=== PATIENT | female | born 1965 | race Caucasian/White ===

== ENCOUNTER 2023-07-08 08:45 | Outpatient (CLI) | payer BC, SELFPAY ==
--- NOTE | 2023-07-08 08:57 | XR_ITS ---
FINAL REPORT CLINICAL HISTORY: FOOT PAIN COMPARISON: None FINDINGS: RIGHT FOOT: Three views of the right foot were obtained. There is no acute fracture or dislocation. The joint spaces are intact with minimal hypertrophic change of the first MTP joint. There is no soft tissue abnormality. IMPRESSION: No acute bony abnormality. Minimal hypertrophic change of the first MTP joint. Reviewed, Interpreted and Dictated by Pérez Rios MD Transcribed by Darya Calvert Authenticated and [facility]
== END 2023-07-08 23:59 ==
LOC: RAD 08:53
PROVIDERS: PCP Family Medicine; Visit Provider Nurse Practitioner
DX: M79.672 Pain in left foot (principal)
CPT/HCPCS: 73630

== ENCOUNTER 2023-07-28 17:48 | Outpatient (CLI) | payer BC, SELFPAY | END 2023-07-28 23:59 | LOC: LAB.DROPOF 17:48 | PROVIDERS: PCP Nurse Practitioner; Visit Provider Nurse Practitioner | DX: M79.671 Pain in right foot (principal); S99.921A Unspecified injury of right foot, initial encounter; R60.0 Localized edema; Z51.89 Encounter for other specified aftercare | CPT/HCPCS: 87070; 87205 ==

== ENCOUNTER 2023-08-11 10:03 | Outpatient (CLI) | payer BC, SELFPAY ==
[2023-08-11 10:45] LABS: Basophils # 0.1 K/mm3 (0-0.2); Basophils % 0.7 % (0.1-2.0); Eosinophils # 0.1 K/mm3 (0.0-0.4); Eosinophils % 0.7 % (0.1-12.0); Hematocrit 42.6 % (37.0-47.0); Hemoglobin 13.8 g/dL (12.2-16.2); Lymphocytes # 2.1 K/mm3 (0.7-4.5); Lymphocytes % 24.1 % (10-50); Mean Corpuscular HGB Conc 32.4 g/dL (31.8-35.4); Mean Corpuscular Hemoglobin 33.5 pg (27.0-31.2); Mean Corpuscular Volume 103.5 fl (81-99); Mean Platelet Volume 7.9 fl (7.4-10.4); Monocytes # 0.4 K/mm3 (0.1-1.0); Monocytes % 4.4 % (1.7-9.3); Platelet Count 278 K/mm3 (142-424); Red Blood Count 4.11 M/mm3 (4.20-5.40); White Blood Count 8.5 K/mm3 (4.8-10.8)
[2023-08-11 11:04] LABS: Chloride 107 mmol/L (98-107); Sodium 139 mmol/L (136-145)
[2023-08-11 11:07] LABS: Alanine Aminotransferase 19 U/L (12-78); Albumin Level 4.6 g/dl (3.5-5.0); Albumin/Globulin Ratio 1.9 (1.1-1.8); Alkaline Phosphatase 91 U/L (38-126); Aspartate Amino Transferase 32 U/L (14-36); Bilirubin,Total 0.6 mg/dl (0.2-1.3); Blood Urea Nitrogen 11 mg/dl (7-17); Calcium 9.8 mg/dl (8.4-10.2); Carbon Dioxide 28 mmol/L (22.0-30.0); Estimated Glomerular Filt Rate 86 ml/min (>60); GFR (African American) 104 ML/MIN (>60); Globulin 2.4 g/dL (1.3-3.2); Glucose 108 mg/dl (74-100)
[2023-08-11 11:12] LABS: C-Reactive Protein 0.6 mg/L (0-4)
[2023-08-11 11:34] LABS: Erythrocyte Sedimentation Rate 15 mm/hr (0-30)
== END 2023-08-11 23:59 ==
LOC: LAB 10:04
PROVIDERS: PCP Family Medicine; Visit Provider Nurse Practitioner
DX: M79.671 Pain in right foot (principal); R60.0 Localized edema; S99.921A Unspecified injury of right foot, initial encounter; Z51.89 Encounter for other specified aftercare
CPT/HCPCS: 36415; 80053; 85025; 85651; 86140

== ENCOUNTER 2023-08-26 16:05 | Outpatient (CLI) | payer BC, SELFPAY ==
--- NOTE | 2023-08-26 16:08 | XR_ITS ---
PROCEDURE INFORMATION: Exam: XR Right Foot Complete; Alignment Exam date and time: 08/26/2023 4:14 PM Age: 57 years old Clinical indication: Other: Wound of R 4-5th toes TECHNIQUE: Imaging protocol: Radiologic exam of the right foot. Views: 3 or more views. COMPARISON: CR XR FOOT RT MIN 3V 07/08/2023 9:03 AM FINDINGS: Bones/joints: No acute fracture or dislocation. Mild joint space narrowing and marginal spurring at the 1st MTP joint. No erosive changes. Bone mineralization is normal. Soft tissues: Mild generalized soft tissue swelling. No soft tissue air. IMPRESSION: 1. Mild generalized soft tissue swelling. 2. Mild degenerative changes at the 1st MTP joint.
[2023-08-26 16:39] LABS: Basophils # 0.1 K/mm3 (0-0.2); Basophils % 1.1 % (0.1-2.0); Eosinophils # 0.1 K/mm3 (0.0-0.4); Eosinophils % 0.8 % (0.1-12.0); Hematocrit 40.5 % (37.0-47.0); Hemoglobin 13.1 g/dL (12.2-16.2); Lymphocytes # 3.1 K/mm3 (0.7-4.5); Lymphocytes % 39.8 % (10-50); Mean Corpuscular HGB Conc 32.4 g/dL (31.8-35.4); Mean Corpuscular Hemoglobin 33.3 pg (27.0-31.2); Mean Corpuscular Volume 102.8 fl (81-99); Mean Platelet Volume 7.6 fl (7.4-10.4); Monocytes # 0.4 K/mm3 (0.1-1.0); Monocytes % 4.6 % (1.7-9.3); Neutrophils # 4.1 K/mm3 (1.8-7.8); Neutrophils % 53.6 % (37.0-80.0); Platelet Count 260 K/mm3 (142-424); Red Blood Count 3.94 M/mm3 (4.20-5.40); Red Cell Distribution Width 12.7 % (11.5-17.5); White Blood Count 7.7 K/mm3 (4.8-10.8)
[2023-08-26 16:47] LABS: Chloride 104 mmol/L (98-107); Potassium 4.5 mmoL/L (3.5-5.1); Sodium 137 mmol/L (136-145)
[2023-08-26 16:50] LABS: Alanine Aminotransferase 18 U/L (12-78); Albumin Level 4.5 g/dl (3.5-5.0); Alkaline Phosphatase 73 U/L (38-126); Anion Gap 11.5 mEq/L (5-15); Aspartate Amino Transferase 31 U/L (14-36); Bilirubin,Total 0.7 mg/dl (0.2-1.3); Blood Urea Nitrogen 13 mg/dl (7-17); Carbon Dioxide 26 mmol/L (22.0-30.0); Estimated Glomerular Filt Rate 86 ml/min (>60); GFR (African American) 104 ML/MIN (>60); Globulin 2.3 g/dL (1.3-3.2); Total Protein,Serum 6.8 g/dl (6.3-8.2)
[2023-08-26 16:51] LABS: Calcium 10.1 mg/dl (8.4-10.2); Glucose 99 mg/dl (74-100)
[2023-08-26 16:59] LABS: C-Reactive Protein < 0.3 mg/L (0-4)
[2023-08-26 17:04] LABS: Erythrocyte Sedimentation Rate 11 mm/hr (0-30)
[2023-08-26 17:10] LABS: Hemoglobin A1C 5.5 % (4.0-6.0)
== END 2023-08-26 23:59 | disposition home or self-care (01) ==
LOC: LAB 16:06
PROVIDERS: PCP Family Medicine; Visit Provider Nurse Practitioner
DX: M79.671 Pain in right foot (principal); S99.921A Unspecified injury of right foot, initial encounter; Z51.89 Encounter for other specified aftercare; B96.89 Other specified bacterial agents as the cause of diseases classified elsewhere
CPT/HCPCS: 36415; 73630; 80053; 83036; 85025; 85651; 86140; 87070; 87205

== ENCOUNTER 2023-08-27 08:56 | Outpatient (CLI) | payer BC, SELFPAY ==
--- NOTE | 2023-08-27 08:56 | MR_ITS ---
FINAL REPORT CLINICAL HISTORY: cellulitis of R foot- non healing wound between 4th-5th toes COMPARISON: None FINDINGS: Multiplanar MR imaging of the right foot was performed without contrast. There is mild degenerative change. The bony structures are intact without evidence of fracture, bone bruise or marrow edema. The flexor and extensor tendons are intact. No ligamentous injury is identified. The musculature is intact. The plantar aponeurosis is intact. No soft tissue mass or cyst is identified. No evidence of osteomyelitis. IMPRESSION: No acute bony abnormality identified. No evidence of osteomyelitis. Reviewed, Interpreted and Dictated by Uriel Galvin III, MD Transcribed by Christiana Rosa Authenticated and [facility]
== END 2023-08-27 23:59 | disposition home or self-care (01) ==
LOC: RAD 08:56
PROVIDERS: PCP Family Medicine; Visit Provider Nurse Practitioner
DX: M79.671 Pain in right foot (principal); S99.921A Unspecified injury of right foot, initial encounter; L03.90 Cellulitis, unspecified; L02.91 Cutaneous abscess, unspecified
CPT/HCPCS: 73718